=== PATIENT | female | born 1980 | race Caucasian/White ===

== ENCOUNTER 2017-03-21 19:14 | Emergency (ER) | payer OTHER ==
[~2017-03-21] VITALS: Ht 157.5 cm; Wt 83.9 kg
[2017-03-21] MEDS ORDERED: PANTOPRAZOLE SODIUM 40 MG VIAL IV ONE (20:45)
[2017-03-21] MEDS ORDERED: IV NORMAL SALINE 1000 ML BAG IV ONE (20:45)
[2017-03-21 21:29] LABS: BASOPHILS % (AUTO) 0.5 % (0.0-2.0); EOSINOPHILS # (AUTO) 0.6 K/uL (0.0-0.7); EOSINOPHILS % (AUTO) 7.8 % (0.0-7.0); HEMOGLOBIN 15.8 G/DL (12.0-16.0); LYMPHOCYTES # (AUTO) 2.9 K/UL (0.8-4.8); LYMPHOCYTES % (AUTO) 39.5 % (20.5-51.5); MEAN CORPUSCULAR HEMOGLOBIN 33.7 UUG (27.0-31.0); MEAN CORPUSCULAR VOLUME 85.3 FL (81.0-99.0); MONOCYTES # (AUTO) 0.2 K/UL (0.1-1.30); MONOCYTES % (AUTO) 2.9 % (0.0-11.0); NEUTROPHILS # (AUTO) 3.7 K/UL (1.8-8.9); NEUTROPHILS % (AUTO) 49.3 % (38.5-71.5); PLATELET COUNT (AUTO) 288 K/UL (150-450); RED BLOOD CELL COUNT(AUTO) 4.69 MIL/UL (4.2-5.4); WHITE BLOOD COUNT (AUTO) 7.4 K/UL (4.0-11.2)
[2017-03-21] MEDS ORDERED: KETOROLAC TROMETHAMINE 30 MG INJ IVP ONE (21:30)
[2017-03-21] MEDS ORDERED: KETOROLAC TROMETHAMINE 30 MG INJ ONE (21:48)
[2017-03-21] MEDS ORDERED: PANTOPRAZOLE SODIUM 40 MG VIAL ONE (21:49)
[2017-03-21 21:51] LABS: MEAN CORPUSCULAR HGB CONC 40 g/dL (32.0-37.0)
[2017-03-21 21:59] LABS: EOSINOPHILS % (MANUAL) 7 % (0-8); LYMPHOCYTES % (MANUAL) 41 % (20-40); MONOCYTES % (MANUAL) 4 % (2-10); NEUTROPHILS % (MANUAL) 48 % (42-75)
[2017-03-21] MEDS ORDERED: ONDANSETRON 4 MG/2 ML VIAL IV ONE (22:45)
[2017-03-21] MEDS ORDERED: ONDANSETRON 4 MG/2 ML VIAL ONE (22:49)
[2017-03-21 22:54] LABS: *BILIRUBIN,URIN NEGATIVE (NEGATIVE); *BLOOD, URINE Trace-lysed (NEGATIVE); *CLARITY,URINE CLEAR (CLEAR); *COLOR,URINE YELLOW (YELLOW); *KETONES,URINE NEGATIVE (NEGATIVE); *PROTEIN,URINE NEGATIVE (NEGATIVE); *UROBILINOGEN,URINE 0.2 E.U./dl (NORMAL); LEUKOCYTE ESTERASE ,URINE 1+ (NEGATIVE); NITRITE, URINE NEGATIVE (NEGATIVE); UGLUCOSE NEGATIVE (NEGATIVE)
[2017-03-21 23:16] LABS: BACTERIA,URINE FEW /HPF (NONE SEEN); RBC,URINE 0-3 /HPF (0-3); SQUAMOUS EPITHELIAL CELL,UR FEW /HPF (NONE SEEN)
[2017-03-21 23:36] LABS: CARBON DIOXIDE 23 mmol/L (21-32); CHLORIDE 97 mmol/L (98-107); POTASSIUM 3.8 mmol/L (3.5-5.1)
[2017-03-21 23:37] LABS: ALKALINE PHOSPHATASE 120 U/L (50-136); BILIRUBIN,DIRECT < 0.1 mg/dL (0.0-0.2); BILIRUBIN,TOTAL 0.4 mg/dL (0.1-1.0); CREATININE 0.7 mg/dL (0.6-1.3); GLUCOSE 342 mg/dL (74-106); UREA NITROGEN, BLOOD 14 mg/dL (7-20)
[2017-03-21 23:38] LABS: LIPASE 135 U/L (73-393); TOTAL PROTEIN, SERUM 6.1 g/dL (6.4-8.2)
[2017-03-21 23:39] LABS: ALANINE AMINOTRANSFERASE QNS U/L (14-59); ASPARTATE AMINOTRANSFERASE QNS U/L (15-37)
[2017-03-22] MEDS ORDERED: LIDOCAINE VISCUS 2% 15 ML UDC MM ONE
[2017-03-22] MEDS ORDERED: ONDANSETRON 4 MG/2 ML VIAL IV ONE
[2017-03-22] MEDS ORDERED: MAG HYDROX/AL HYDROX/SIMETH 30 ML LIQUID UDC PO ONE
[2017-03-22] MEDS ORDERED: MAG HYDROX/AL HYDROX/SIMETH 30 ML LIQUID UDC ONE (00:04)
[2017-03-22] MEDS ORDERED: LIDOCAINE VISCUS 2% 15 ML UDC ONE (00:04)
[2017-03-22] MEDS ORDERED: ONDANSETRON 4 MG/2 ML VIAL ONE (00:29)
[2017-03-22] MEDS ORDERED: HYDROCODONE/APAP 5-325MG TABLET ONE (00:29)
[2017-03-22] MEDS ORDERED: HYDROCODONE/APAP 5-325MG TABLET PO ONE (00:30)
[2017-03-22] MEDS ORDERED: ALBUTEROL SULFATE 2.5 MG/3 ML NEBU NEB ONE (00:30)
[2017-03-22] MEDS ORDERED: ALBUTEROL SULFATE 2.5 MG/3 ML NEBU ONE (00:40)
--- NOTE | 2017-03-22 00:56 | NUR ---
Patient discharged to home in stable conditon. Written and verbal after care instructions given. Patient verbalizes understanding of instructions.
[2017-03-22 00:59] VITALS: BP 135/89
== END 2017-03-22 01:01 | disposition home or self-care (01) ==
LOC: ER 19:18
DX: R10.13 Epigastric pain (principal); E78.1 Pure hyperglyceridemia; E11.9 Type 2 diabetes mellitus without complications; J45.909 Unspecified asthma, uncomplicated; Z88.6 Allergy status to analgesic agent
CPT/HCPCS: 36415; 71010; 83690; 84703; 85025; 93005; A4663; C9113; J1885; J2405; J7030

== ENCOUNTER 2017-04-26 21:25 | Inpatient (IN) | payer OTHER ==
[~2017-04-26] VITALS: Ht 157.5 cm; Wt 82.6 kg
--- NOTE | 2017-04-26 21:30 | NUR ---
PATIENT BROUGHT IN BY RESCUE FROM HOME FOR C/O ABDOMINAL PAIN THAT HAS INCREASINGLY WORSE LAST NIGHT. WAS SEEN AT [facility] ER 2 DAYS AGO FOR SIMILAR COMPLAINT. NO RESP DISTRESS NOTED OR REPORTED.... MD AT BEDSIDE....
[2017-04-26 22:32] LABS: WHITE BLOOD COUNT (AUTO) 6.8 K/UL (4.0-11.2)
[2017-04-26 22:50] LABS: BASOPHILS # (AUTO) 0.1 K/uL (0.0-8.0); BASOPHILS % (AUTO) 0.8 % (0.0-2.0); EOSINOPHILS # (AUTO) 0.2 K/uL (0.0-0.7); EOSINOPHILS % (AUTO) 3.4 % (0.0-7.0); HEMATOCRIT 40.1 % (37-47); HEMOGLOBIN 14.5 G/DL (12.0-16.0); LYMPHOCYTES # (AUTO) 2.4 K/UL (0.8-4.8); LYMPHOCYTES % (AUTO) 34.7 % (20.5-51.5); MEAN CORPUSCULAR HEMOGLOBIN 30.6 UUG (27.0-31.0); MEAN CORPUSCULAR HGB CONC 36 g/dL (32.0-37.0); MEAN CORPUSCULAR VOLUME 84.6 FL (81.0-99.0); MONOCYTES # (AUTO) 0.3 K/UL (0.1-1.30); MONOCYTES % (AUTO) 4.6 % (0.0-11.0); NEUTROPHILS # (AUTO) 3.8 K/UL (1.8-8.9); NEUTROPHILS % (AUTO) 56.5 % (38.5-71.5); PLATELET COUNT (AUTO) 375 K/UL (150-450); RED BLOOD CELL COUNT(AUTO) 4.75 MIL/UL (4.2-5.4)
[2017-04-27 01:23] LABS: POTASSIUM 4.6 mmol/L (3.5-5.1)
[2017-04-27 01:24] LABS: BILIRUBIN,TOTAL 0.5 mg/dL (0.1-1.0); CARBON DIOXIDE 26 mmol/L (21-32); CHLORIDE 91 mmol/L (98-107); CREATININE 1.1 mg/dL (0.6-1.3); UREA NITROGEN, BLOOD 39 mg/dL (7-20)
[2017-04-27 01:25] LABS: ALKALINE PHOSPHATASE 196 U/L (50-136); BILIRUBIN,DIRECT < 0.1 mg/dL (0.0-0.2); LIPASE 110 U/L (73-393); TOTAL PROTEIN, SERUM 7.9 g/dL (6.4-8.2)
[2017-04-27 01:28] LABS: GLUCOSE 736 mg/dL (74-106)
[2017-04-27 02:11] LABS: ALANINE AMINOTRANSFERASE 29 U/L (14-59); ASPARTATE AMINOTRANSFERASE 34 U/L (15-37)
--- NOTE | 2017-04-27 03:12 | NUR ---
PER [facility]AIN PAGED [facility], PHOTOGRAVURE PRESS OPERATOR STATES WILL HAVE SHAHANA ORTIZ PAGED....
[2017-04-27] MEDS ORDERED: INSU300I SQ (03:19)
[2017-04-27] MEDS ORDERED: ATEN25TA PO (03:19)
[2017-04-27] MEDS ORDERED: FENO145T20 PO (03:19)
[2017-04-27] MEDS ORDERED: LOSA25TA13 PO (03:19)
[2017-04-27] MEDS ORDERED: NORT10CA PO (03:19)
[2017-04-27] MEDS ORDERED: GABA-534 PO (03:19)
[2017-04-27] MEDS ORDERED: INSU100C SUBCUT (03:19)
[2017-04-27] MEDS ORDERED: PANT40TA4 PO (03:19)
--- NOTE | 2017-04-27 04:41 | NUR ---
Pt. admitted to TELE , under care of Dr. ORTIZ Belongs List completed
[2017-04-27 04:45] VITALS: BP 137/97
--- NOTE | 2017-04-27 04:45 | NUR ---
PATIENT TRANSPORTED FROM ER TO TELE VIA WHEELCHAIR. TELE SR SINUS TACH. NO ACUTE DISTRESS NOTED. USHERED SAFELY TO BED. PATIENT WAS ABLE TO PROVIDE HISTORY. BODY ASSESSMENT DONE. SAFETY INITIATED. CALL LIGHT WITHIN REACH. WILL REVIEW MEDS AND WILL GIVE MEDS ORDERED. ADMISSION PROTOCOL FOLLOWED. WILL CONTINUE TO MONITOR.
--- NOTE | 2017-04-27 07:36 | NUR ---
NO CHANGES T/O SHIFT. NO ACUTE DISTRESS NOTED. SAFETY AND COMFORT MEASURES MAINTAINED T/O SHIFT. WILL CONTINUE TO MONITOR.
--- NOTE | 2017-04-27 08:28 | NUR ---
PT HAS PAIN 10/10 IN UPPER LEFT QUADRANT. OFFERED NORCO, PT DOES NOT WANT IT, STATES IT DOES NOT WORK. OFFERED ICE PACK OR TO REPOSITION, PT REFUSED BOTH. ASKING TO SEE DOCTOR, ADVISED PT THAT DOCTOR WILL BE IN TODAY, JUST UNSURE OF EXACT TIME. ALL MORNING MEDICATIONS GIVEN, ALL SAFETY MEASURES ATTENDED TO, CALL LIGHT IN REACH
[2017-04-27 11:27] VITALS: BP 142/74
--- NOTE | 2017-04-27 12:00 | NUR ---
PT HAS BEEN DISCHARGED, REFUSING TO SIGN PAPERWORK UNTIL TAXI VOUCHER IS GIVEN. EXPLAINED TO PT WE CAN ONLY GIVE BUS TOKENS. PT STATES FAMILY IS OUT OF TOWN AND DOES NOT WANT TO TAKE A BUS. REFUSING BS SUGAR CHECK AT THIS TIME. CHARGE NURSE AWARE, CALLING HOUSE SUP TO NOTIFY PT REFUSING TO SIGN DISCHARGE PAPERWORK.
--- NOTE | 2017-04-27 13:30 | NUR ---
LUIZ IN ROOM, PT REFUSING BUS TOKEN, EXPLAINED TO PT THAT IT IS ALL WE CAN DO, PT REFUSING TO SIGN DISCHARGE PAPERWORK. IV REMOVED WITH NO REDNESS OR IRRITATION NOTED. MEDICATIONS RETURNED TO PATIENT. PT REFUSING TO SIGN BELONGINGS PAPERWORK. PT LEFT AMBULATORY
== END 2017-04-27 13:30 | disposition home or self-care (01) | DRG 638 ==
LOC: ER 21:25 → TELE 04-27 03:20
PROVIDERS: ADMIT Nurse Practitioner Acute Care
DX: E11.00 Type 2 diabetes mellitus with hyperosmolarity without nonketotic hyperglycemic-hyperosmolar coma (NKHHC) (principal); D68.59 Other primary thrombophilia; D68.2 Hereditary deficiency of other clotting factors; E11.40 Type 2 diabetes mellitus with diabetic neuropathy, unspecified; K86.1 Other chronic pancreatitis; E87.1 Hypo-osmolality and hyponatremia; R07.81 Pleurodynia; E11.65 Type 2 diabetes mellitus with hyperglycemia; Z76.5 Malingerer [conscious simulation]; Z79.4 Long term (current) use of insulin; Z79.899 Other long term (current) drug therapy; Z88.6 Allergy status to analgesic agent; E66.9 Obesity, unspecified; Z68.33 Body mass index [BMI] 33.0-33.9, adult; J45.909 Unspecified asthma, uncomplicated; G89.29 Other chronic pain; K44.9 Diaphragmatic hernia without obstruction or gangrene; E78.1 Pure hyperglyceridemia
CPT/HCPCS: 36415; 70030-TC; 71010; 71275; 83690; 84703; 85025; 85730; 93005; A4663; J1170; J1200; J1650; J1815; J1885; J2405; J7030; J7050; Q9967